=== PATIENT | male | born 1985 | race American Indian/Alaskan Native ===

== ENCOUNTER 2017-12-25 18:19 | Emergency (ER) | payer OTHER ==
[2017-12-25 18:21] VITALS: BMI 21.9
--- NOTE | 2017-12-25 18:43 | ED PDOC ---
Arrival/HPI - General Chief Complaint: ENT Problem Time Seen by Provider: 12/25/17 18:43 Historian: Patient - History of Present Illness Narrative History of Present Illness (Text): 12/25/17 18:43 This 32 yo male who denies pmh, presents to this ED c/o MONTANO, chills, nasal congestion x 1 day. Patient denies sob, cp, abdominal pain, urinary symptoms, recent travel or sick contact. Time/Duration: Other (see hpi) Context: Home Past Medical History - Provider Review Nursing Documentation Reviewed: Yes - Infectious Disease Hx of Infectious Diseases: None - Reproductive Currently Lactating: No - Psychiatric Hx Substance Use: No - Anesthesia Hx Anesthesia: No Family/Social History - Physician Review Nursing Documentation Reviewed: Yes Family/Social History: Other (noncontributory) Smoking Status: Current Some Days Smoker Hx Alcohol Use: No Hx Substance Use: No Allergies/Home Meds Allergies/Adverse Reactions: Allergies No Known Allergies Allergy (Verified 12/25/17 18:21) Review of Systems - Review of Systems Constitutional: Normal, Other (+ chills). absent: Fatigue, Weight Change, Fevers Eyes: Normal. absent: Photophobia ENT: Sore Throat, Rhinorrhea Respiratory: Normal. absent: SOB, Cough Cardiovascular: Normal. absent: Chest Pain, Palpitations Gastrointestinal: Normal. absent: Abdominal Pain, Nausea, Vomiting Genitourinary Male: Normal. absent: Dysuria, Frequency, Hematuria Musculoskeletal: Normal. absent: Back Pain, Neck Pain Skin: Normal. absent: Rash Neurological: Headache. absent: Dizziness, Focal Weakness, Gait Changes, Speech Changes, Facial Droop, Disequilibrium, Seizure Endocrine: Normal Hemo/Lymphatic: Normal Psychiatric: Normal Physical Exam Vital Signs Temp Pulse Resp BP Pulse Ox 12/25/17 20:33 97.7 F 72 20 143/71 100 Temperature: Afebrile Blood Pressure: Normal Pulse: Regular Respiratory Rate: Normal Appearance: Positive for: Well-Appearing, Non-Toxic, Comfortable Pain Distress: None Mental Status: Positive for: Alert and Oriented X 3 - Systems Exam Head: Present: Atraumatic, Normocephalic Pupils: Present: PERRL Extroacular Muscles: Present: EOMI Conjunctiva: Present: Normal Mouth: Present: Moist Mucous Membranes Neck: Present: Normal Range of Motion Respiratory/Chest: Present: Clear to Auscultation, Good Air Exchange. No: Respiratory Distress, Accessory Muscle Use Cardiovascular: Present: Regular Rate and Rhythm, Normal S1, S2. No: Murmurs Abdomen: Present: Normal Bowel Sounds. No: Tenderness, Distention, Peritoneal Signs Back: Present: Normal Inspection. No: CVA Tenderness Upper Extremity: Present: Normal Inspection, Normal ROM. No: Cyanosis, Edema Lower Extremity: Present: Normal Inspection, Normal ROM. No: Edema Neurological: Present: GCS=15, CN II-XII Intact, Speech Normal Skin: Present: Warm, Dry, Normal Color. No: Rashes Psychiatric: Present: Alert, Oriented x 3, Normal Insight, Normal Concentration Medical Decision Making ED Course and Treatment: 12/25/17 20:22 Patient feels better. Re-evaluation Time: 20:38 Reassessment Condition: Re-examined, Improved - Lab Interpretations Lab Results: 12/25/17 19:40 12/25/17 19:40 Lab Results 12/25/17 19:40: Sodium 142, Potassium 4.0, Chloride 102, Carbon Dioxide 28, Anion Gap 16, BUN 7, Creatinine 0.9, Est GFR ( Amer) > 60, Est GFR (Non- Af Amer) > 60, Random Glucose 88, Calcium 10.0, Total Bilirubin 0.6, AST 43, ALT 23, Alkaline Phosphatase 143 H, Total Protein 8.1, Albumin 4.5, Globulin 3.6 , Albumin/Globulin Ratio 1.3 12/25/17 19:40: WBC 9.3, RBC 5.65, Hgb 14.8, Hct 43.3, MCV 76.6 L, MCH 26.2, MCHC 34.2, RDW 14.0, Plt Count 212, MPV 10.1, Gran % 78.1 H, Lymph % (Auto) 9.7 L, [place] % (Auto) 11.3 H, Eos % (Auto) 0.8 L, Baso % (Auto) 0.1, Gran # 7.24 H, Lymph # (Auto) 0.9 L, [place] # (Auto) 1.1 H, Eos # (Auto) 0.1, Baso # (Auto) 0.01 12/25/17 19:35: Influenza Typ A,B (EIA) Negative for flu a/b I have reviewed the lab results: Yes Interpretation: No clinic. lab abnormalty - Medication Orders Current Medication Orders: Discontinued Medications Acetaminophen (Tylenol 325mg Tab) 975 mg PO STAT STA Stop: 12/25/17 18:46 Sodium Chloride (Sodium Chloride 0.9%) 1,000 mls @ 999 mls/hr IV .Q1H1M STA Stop: 12/25/17 19:44 Ketorolac Tromethamine (Toradol) 30 mg IVP STAT STA Stop: 12/25/17 18:45 Disposition/Present on Arrival - Present on Arrival Any Indicators Present on Arrival: No History of DVT/PE: No History of Uncontrolled Diabetes: No Urinary Catheter: No History of Decub. Ulcer: No History Surgical Site Infection Following: None - Disposition Have Diagnosis and Disposition been Completed?: Yes Diagnosis: Headache, Upper respiratory infection Disposition: HOME/ ROUTINE Disposition Time: 20:38 Patient Plan: Discharge Condition: IMPROVED Discharge Instructions (ExitCare): Headache, Adult Additional Instructions: Call private doctor for follow up visit in 1-2 days Take medication as instructed with food. Drink enough fluids, and eat a healthy diet. Return to emergency if symptoms worsen. Prescriptions: Ibuprofen [Motrin] 600 mg PO Q8 PRN #20 tab PRN Reason: Pain, Severe (8-10) Referrals: PCP,NO [Primary Care Provider] - Follow up with primary Adam Robins MD [Staff Provider] - Follow up with primary Forms: [facility] (Arabic), WORK NOTE
[2017-12-25] MEDS ORDERED: Sodium Chloride 0.9% 1,000 ML IV STA (18:44)
[2017-12-25 19:59] LABS: BASO # 0.01 K/mm3 (0.0-2.0); BASO % 0.1 % (0.0-3.0); EOS # 0.1 (0.0-0.7); EOS % 0.8 % (1.5-5.0); GRAN # 7.24 (1.4-6.5); GRAN % 78.1 % (50.0-68.0); HEMOGLOBIN 14.8 g/dL (14.0-18.0); LYMPH # 0.9 (1.2-3.4); LYMPH % 9.7 % (22.0-35.0); MEAN CELL VOLUME 76.6 fl (80.0-105.0); MEAN CORPUSCULAR HEMOGLOBIN 26.2 pg (25.0-35.0); MEAN CORPUSCULAR HGB CONC 34.2 g/dl (31.0-37.0); MEAN PLATELET VOLUME 10.1 fl (7.0-11.0); MONO # 1.1 (0.1-0.6); MONO % 11.3 % (1.0-6.0); RBC 5.65 10^6/uL (3.5-6.1); WHITE BLOOD COUNT 9.3 10^3/ul (4.5-11.0)
[2017-12-25 20:04] LABS: ALB/GLOB RATIO 1.3 (1.1-1.8); ALBUMIN 4.5 g/dL (3.0-4.8); ALT/SGPT 23 U/L (7-56); AST/SGOT 43 U/L (17-59); BLOOD UREA NITROGEN 7 mg/dL (7-21); GFR AFRICAN-AMERICAN > 60; GFR NON-AFRICAN AMERICAN > 60
[2017-12-25 20:33] VITALS: BP 143/71; PULSE 72; RESP 20; TEMP 97.7; O2SAT 100
== END 2017-12-25 20:52 | disposition home or self-care (01) ==
LOC: EDSEX → ED 18:19
DX: J06.9 Acute upper respiratory infection, unspecified (principal); R51 Headache
CPT/HCPCS: 80053; 85025; 87804; 99284; J1885; J7040

== ENCOUNTER 2018-10-18 03:21 | Emergency (ER) | payer OTHER ==
[2018-10-18 03:21] VITALS: BMI 21.9
[2018-10-18] MEDS ORDERED: Tmp-Smz 800 mg-160 mg DS Tab PO ONE (03:51)
[2018-10-18] MEDS ORDERED: TraMADol/Apap 37.5/325 mg Tab PO STA (03:51)
--- NOTE | 2018-10-18 03:55 | ED PDOC ---
Arrival/HPI - General Chief Complaint: Lower Extremity Problem/Injury Time Seen by Provider: 10/18/18 03:22 Historian: Patient - History of Present Illness Narrative History of Present Illness (Text): 10/18/18 03:52 A 32 year old male, with no significant past medical history, presents to the emergency department for a complaint of left foot pain and swelling. Patient reports that his symptoms began today after work. He notes that he wears steal- toed boots for work. Patient states that his symptoms may be the cause of a spider bite. The patient denies trauma, injury, fevers, chills, headache, dizziness, chest pain, shortness of breath, dyspnea on exertion, cough, abdominal pain, nausea, vomiting, diarrhea, back pain, neck pain, urinary/bowel changes, or any other complaint. Time/Duration: Other (Today) Symptom Onset: Sudden Symptom Course: Worsening Activities at Onset: Rest, Light Context: Home, Work Past Medical History - Provider Review Nursing Documentation Reviewed: Yes - Infectious Disease Hx of Infectious Diseases: None - Reproductive Currently Lactating: No - Psychiatric Hx Substance Use: No - Anesthesia Hx Anesthesia: No Family/Social History - Physician Review Nursing Documentation Reviewed: Yes Family/Social History: No Known Family HX Smoking Status: Current Some Days Smoker Hx Alcohol Use: No Hx Substance Use: No Allergies/Home Meds Allergies/Adverse Reactions: Allergies No Known Allergies Allergy (Verified 10/18/18 03:28) Review of Systems - Physician Review All systems were reviewed & negative as marked: Yes - Review of Systems Constitutional: absent: Fevers Respiratory: absent: SOB, Cough Cardiovascular: absent: Chest Pain, HICKS Gastrointestinal: absent: Abdominal Pain, Stool Changes, Diarrhea, Nausea, Vomiting Genitourinary Male: absent: Urinary Output Changes Musculoskeletal: Other (Left foot pain and swelling. ). absent: Back Pain, Neck Pain Neurological: absent: Headache, Dizziness Physical Exam Vital Signs Reviewed: Yes Vital Signs Temp Pulse Resp BP Pulse Ox 10/18/18 03:29 98.1 F 67 16 136/75 97 Temperature: Afebrile Blood Pressure: Normal Pulse: Regular Respiratory Rate: Normal Appearance: Positive for: Well-Appearing, Non-Toxic, Comfortable Pain Distress: None Mental Status: Positive for: Alert and Oriented X 3 - Systems Exam Head: Present: Atraumatic, Normocephalic Pupils: Present: PERRL Extroacular Muscles: Present: EOMI Conjunctiva: Present: Normal Mouth: Present: Moist Mucous Membranes Neck: Present: Normal Range of Motion Respiratory/Chest: Present: Clear to Auscultation, Good Air Exchange. No: Respiratory Distress, Accessory Muscle Use Cardiovascular: Present: Regular Rate and Rhythm, Normal S1, S2. No: Murmurs Abdomen: No: Tenderness, Distention, Peritoneal Signs Back: Present: Normal Inspection Upper Extremity: Present: Normal Inspection. No: Cyanosis, Edema Lower Extremity: Present: Swelling (left foot swollen over the dorsum, 3rd, 4th, and 5th toes. ). No: Edema Neurological: Present: GCS=15, CN II-XII Intact, Speech Normal Skin: Present: Warm, Dry, Normal Color. No: Rashes Psychiatric: Present: Alert, Oriented x 3, Normal Insight, Normal Concentration Medical Decision Making ED Course and Treatment: 10/18/18 03:56 Impression: A 32 year old male presents to the emergency department for a complaint of left foot pain and swelling. Plan: -- Left Foot X- Ray -- Bactrim and Ultracet -- Reassess and disposition Prior Visits: Notes and results from previous visits were reviewed. Progress Notes: - Scribe Statement The provider has reviewed the documentation as recorded by the Nandiniibshania Thomson Provider Scribe Attestation: All medical record entries made by the Scribe were at my direction and personally dictated by me. I have reviewed the chart and agree that the record accurately reflects my personal performance of the history, physical exam, medical decision making, and the department course for this patient. I have also personally directed, reviewed, and agree with the discharge instructions and disposition. Disposition/Present on Arrival - Present on Arrival Any Indicators Present on Arrival: No History of DVT/PE: No History of Uncontrolled Diabetes: No Urinary Catheter: No History of Decub. Ulcer: No History Surgical Site Infection Following: None - Disposition Have Diagnosis and Disposition been Completed?: Yes Diagnosis: Foot infection Disposition: HOME/ ROUTINE Disposition Time: 05:35 Condition: GOOD Discharge Instructions (ExitCare): Wound Infection Prescriptions: Sulfamethoxazole/Trimethoprim [Bactrim DS 800 mg-160 mg] 1 tab PO BID #14 tab Tramadol HCl [Ultram] 50 mg PO QID #8 tab Referrals: PCP,NO [Primary Care Provider] - Follow up with primary Zia,Tammy, MD [Medical Doctor] - Follow up with primary Forms: [employer] (Belarusian)
[2018-10-18 05:29] VITALS: BP 130/72; PULSE 72; RESP 17; TEMP 98.2; O2SAT 98
--- NOTE | 2018-10-18 16:14 | RAD ---
Date of service: 10/18/2018 PROCEDURE: Left Foot Radiographs. HISTORY: pain COMPARISON: None. FINDINGS: BONES: Normal. No fracture. JOINTS: Normal. SOFT TISSUES: Normal. OTHER FINDINGS: None. IMPRESSION: Normal left foot radiographs.
== END 2018-10-18 05:29 | disposition home or self-care (01) ==
LOC: ED 03:21
DX: L08.9 Local infection of the skin and subcutaneous tissue, unspecified (principal)

== ENCOUNTER 2019-02-10 17:55 | Emergency (ER) | payer SELFPAY ==
[2019-02-10 17:55] VITALS: BMI 21.9
== END 2019-02-10 19:21 | disposition left against medical advice (07) ==
LOC: ED 17:55
DX: Z02.89 Encounter for other administrative examinations (principal); K08.89 Other specified disorders of teeth and supporting structures